=== PATIENT | female | born 1985 | race African-American/Black ===

== ENCOUNTER 2017-02-08 17:03 | Outpatient (CLI) | payer OTHER | END 2017-02-08 17:04 | disposition home or self-care (01) | LOC: MADLABBHPM 17:03 | PROVIDERS: ATTEND Family Medicine | DX: R10.2 Pelvic and perineal pain (principal) | CPT/HCPCS: 87077; 87086 ==

== ENCOUNTER 2017-02-11 11:00 | Outpatient (CLI) | payer OTHER ==
[2017-02-11 17:16] LABS: HBCM Index 0.07 S/CO (0-0.79); HBSAg Index 0.21 S/CO (0-0.99); HIV (1/2) Antibody/Antigen Non-Reactive (NonReactive); HIV 1/2 INDEX 0.13 S/CO (<1.00); Hep A IgM AB Non-Reactive (NonReactive); Hep A IgM S/CO 0.14 S/CO (0-0.79); Hep B Surf Ag Non-Reactive S/CO (NonReactive); Hep C IgG Ab Non-Reactive (NonReactive); Hep C Index 0.31 S/CO (0-0.79); Hepatitis B Core IGM Abs Non-Reactive (NonReactive)
[2017-02-14 09:55] LABS: Chlamydia by PCR Not Detected (NotDetected); GC by PCR DETECTED (NotDetected)
[2017-02-15 22:09] LABS: HSV-2 IgG Type Specific Less than 0.91 index (0.00-0.90)
== END 2017-02-11 11:01 | disposition home or self-care (01) ==
LOC: MADLABBHPM 11:00
PROVIDERS: ATTEND Family Medicine
DX: Z20.2 Contact with and (suspected) exposure to infections with a predominantly sexual mode of transmission (principal)
CPT/HCPCS: 36415; 80074; 86592; 86694; 86695; 86696; 87389; 87480; 87491; 87510; 87591; 87660

== ENCOUNTER 2018-04-13 10:27 | Emergency (ER) | payer OTHER, SELFPAY ==
[2018-04-13] MEDS ORDERED: Ondansetron ODT 4 MG TAB ONE (11:09)
== END 2018-04-13 11:15 | disposition home or self-care (01) ==
LOC: MADERS 10:27
DX: B34.9 Viral infection, unspecified (principal); J45.909 Unspecified asthma, uncomplicated; F17.210 Nicotine dependence, cigarettes, uncomplicated; Z79.51 Long term (current) use of inhaled steroids
CPT/HCPCS: 99284; Q0162

== ENCOUNTER 2018-08-25 19:57 | Emergency (ER) | payer SELFPAY ==
[2018-08-25] MEDS ORDERED: Ondansetron ODT 4 MG TAB ONE (20:34)
[2018-08-25] MEDS ORDERED: Dicyclomine 10 MG CAP ONE (20:34)
== END 2018-08-25 20:35 | disposition home or self-care (01) ==
LOC: MADERS 19:57
DX: K52.9 Noninfective gastroenteritis and colitis, unspecified (principal); F17.210 Nicotine dependence, cigarettes, uncomplicated; J45.909 Unspecified asthma, uncomplicated; Z71.6 Tobacco abuse counseling; Z79.51 Long term (current) use of inhaled steroids
CPT/HCPCS: 99406; Q0162